=== PATIENT | male | born 1985 | race Caucasian/White ===

== ENCOUNTER → 2018-03-27 | Outpatient (CLI) | payer BC, OTHER ==
--- NOTE | 2018-03-27 10:38 | Diagnostic Imaging Report ---
INDICATION: Crohn's disease with long-term steroid use. COMPARISON: None. FINDINGS: AP Spine L1-L4: [BMD (g/cm2): .946] [T-Score: -2.4] [Z-Score: -3.0] [BMD Previous: n/a] [BMD % Change: n/a] LT Hip Neck: [BMD (g/cm2): .954] [T-Score: -0.9] [Z-Score: -1.1] LT Hip Total: [BMD (g/cm2):.935] [T-Score:-1.2] [Z-Score: -1.4] [BMD Previous: n/a] [BMD % Change: n/a] RT Hip Neck: [BMD (g/cm2):.955] [T-Score:-0.9] [Z-Score:-1.1] RT Hip Total: [BMD (g/cm2):.885] [T-score:-1.5] [Z-Score:-1.7] [BMD Previous:n/a] [BMD % Change:n/a] *Indicates significant change from prior examination based on 95% confidence level. World Health Organization criteria for BMD interpretation classify patients as Normal (T-score at or above -1.0), Osteopenic (T-score between -1.0 and -2.5) or Osteoporotic (T-score at or below -2.5). LIMITATIONS AND MODIFICATION: None. FRACTURE RISK (FRAX SCORE): The ten year probability of (%): Major Osteoporotic Fracture: [1.8] Hip Fracture: [.1] IMPRESSION: 1. Osteopenia (Low bone mass). 2. Baseline examination. 3. See below National Osteoporosis Foundation guidelines on when to potentially initiate pharmacologic therapy. Based on the National Osteoporosis Foundation Guidelines, pharmacologic treatment should be initiated in any of the following, unless clinical conditions suggest otherwise: * Any patient with prior fragility fracture of the hip or vertebrae. A spine fracture indicates 5X risk for subsequent spine fracture and 2X risk for subsequent hip fracture. * Osteoporosis (T-score <-2.5). * Postmenopausal women and men age 50 and older with low bone mass/osteopenia (T-score between -1.0 and -2.5) by DXA and 10-year major osteoporotic fracture greater than 20% or a 10-year probability of hip fracture greater than 3%. These fracture risks are supplied above in the FRAX score, if applicable. * Clinician judgement and/or patient preferences may indicate treatment for people with 10-year fracture probabilities above or below these levels. Dictated by: Dictated on workstation # [id number]
== END ==
LOC: RAD 08:51
PROVIDERS: ATTEND Internal Medicine
DX: K50.90 Crohn's disease, unspecified, without complications (principal); M85.88 Other specified disorders of bone density and structure, other site; Z79.52 Long term (current) use of systemic steroids; Z87.39 Personal history of other diseases of the musculoskeletal system and connective tissue
CPT/HCPCS: 77080

== ENCOUNTER 2020-09-06 07:07 | Emergency (ER) | payer OTHER ==
[~2020-09-06] VITALS: Ht 182 cm; Wt 98.0 kg
[2020-09-06] MEDS ORDERED: SLF500T (07:19)
--- NOTE | 2020-09-06 07:25 | ED Abdominal Pain ---
General Chief Complaint: Abdominal/GI Problems Stated Complaint: ABD PAIN, N/V Nursing Triage Note: ARRIVED VIA AMB TO ROOM 07. TEARFUL. ABDPAIN/NAUSEA SINCE SATURDAY. Sepsis Screen: No Definite Risk Source of Information: Patient, Family Exam Limitations: No Limitations History of Present Illness Date Seen by Provider: Sep 06, 2020 Time Seen by Provider: 07:12 Initial Comments Patient is a 35-year-old male with a history of Crohn's disease who presents to the emergency department with his this morning with a chief complaint of epigastric and right upper quadrant abdominal pain. Patient states that pain started on Saturday, 2 days ago. He states it comes and "waves". Patient describes the pain as sharp and lasting 30 seconds to a minute. He states he has not had anything to eat or drink really in 2 days. He states yesterday he tried to drink Gatorade but he vomited it back up at around 4:00 this morning he states that he has a lot of "acid" in his stomach. Last bowel movement was a small one yesterday. Patient denies any black or bloody stools. No recent fevers chills, cough congestion. No urinary complaints but he states that he is urinating a little bit lesser amounts over the last 24 hours. No prior abdominal surgeries. No other past medical history other than the Crohn's dise ase. Patient states he has been on sulfasalazine for about the last 2 years. His primary care physician is Dr. Nails. Last well check was last . All other review of systems reviewed and negative except as stated above. Timing/Duration: 1-2 Days Severity/Quality: Sharp, Stabbing Location: RUQ, Epigastric Radiation: No Radiation Activities at Onset: None Associated Symptoms: Nausea/Vomiting Allergies and Home Medications Allergies Coded Allergies: No Known Drug Allergies (Unverified , 09/06/20) Patient Home Medication List Home Medication List Reviewed: Yes Review of Systems Review of Systems Constitutional: see HPI Respiratory: No Symptoms Reported Cardiovascular: No Symptoms Reported Gastrointestinal: Abdominal Pain, Nausea, Poor Appetite, Vomiting Genitourinary: No Symptoms Reported Musculoskeletal: no symptoms reported Skin: no symptoms reported All Other Systems Reviewed Negative Unless Noted: Yes Past Yrctqnn-Tazgeq-Gqcrlx Hx Patient Social History Alcohol Use: Denies Use Smoking Status: Current Everyday Smoker Recent Infectious Disease Expo: No Recent Hopitalizations: No Past Medical History Surgeries: No Respiratory: No Cardiac: No Neurological: No Genitourinary: No Gastrointestinal: Yes Crohns Disease Musculoskeletal: No Endocrine: No HEENT: No Cancer: No Psychosocial: No Integumentary: No Physical Exam Vital Signs Vital Signs - First Documented 09/06/20 07:10 Temp 36.7 Pulse 121 Resp 16 B/P (MAP) 182/132 (149) Pulse Ox 96 O2 Delivery Room Air Capillary Refill : Less Than 3 Seconds Height/Weight/BMI Height: '" Weight: lbs. oz. kg; 29.00 BMI Method: General Appearance: WD/WN, mild distress Respiratory: lungs clear, normal breath sounds, no respiratory distress, no accessory muscle use Cardiovascular: regular rate, rhythm Gastrointestinal: soft, abnormal bowel sounds (High-pitched, tinkling bowel sounds with rushes), tenderness (Mild epigastric and right upper quadrant tenderness) Extremities: non-tender, normal inspection, no pedal edema, no calf tenderness Neurologic/Psychiatric: alert, normal mood/affect, oriented x 3 Skin: normal color, warm/dry Progress/Results/Core Measures Results/Orders Lab Results Laboratory Tests Test 09/06/20 07:24 Range/Units White Blood Count 10.1 4.3-11.0 10^3/uL Red Blood Count 5.70 H 4.30-5.52 10^6/uL Hemoglobin 17.2 13.3-17.7 g/dL Hematocrit 51 40-54 % Mean Corpuscular Volume 89 80-99 fL Mean Corpuscular Hemoglobin 30 25-34 pg Mean Corpuscular Hemoglobin Concent 34 32-36 g/dL Red Cell Distribution Width 12.1 10.0-14.5 % Platelet Count 283 130-400 10^3/uL Mean Platelet Volume 9.7 9.0-12.2 fL Immature Granulocyte % (Auto) 0 % Neutrophils (%) (Auto) 74 42-75 % Lymphocytes (%) (Auto) 18 12-44 % Monocytes (%) (Auto) 7 0-12 % Eosinophils (%) (Auto) 0 0-10 % Basophils (%) (Auto) 0 0-10 % Neutrophils # (Auto) 7.5 1.8-7.8 10^3/uL Lymphocytes # (Auto) 1.8 1.0-4.0 10^3/uL Monocytes # (Auto) 0.7 0.0-1.0 10^3/uL Eosinophils # (Auto) 0.0 0.0-0.3 10^3/uL Basophils # (Auto) 0.0 0.0-0.1 10^3/uL Immature Granulocyte # (Auto) 0.0 0.0-0.1 10^3/uL Sodium Level 141 135-145 MMOL/L Potassium Level 3.8 3.6-5.0 MMOL/L Chloride Level 103 98-107 MMOL/L Carbon Dioxide Level 22 21-32 MMOL/L Anion Gap 16 H 5-14 MMOL/L Blood Urea Nitrogen 10 7-18 MG/DL Creatinine 1.10 0.60-1.30 MG/DL Estimat Glomerular Filtration Rate > 60 BUN/Creatinine Ratio 9 Glucose Level 115 H 70-105 MG/DL Calcium Level 9.8 8.5-10.1 MG/DL Corrected Calcium 8.5-10.1 MG/DL Total Bilirubin 0.7 0.1-1.0 MG/DL Aspartate Amino Transf (AST/SGOT) 13 5-34 U/L Alanine Aminotransferase (ALT/SGPT) 15 0-55 U/L Alkaline Phosphatase 73 40-136 U/L Total Protein 7.6 6.4-8.2 GM/DL Albumin 4.6 H 3.2-4.5 GM/DL Lipase 26 8-78 U/L My Orders Orders - NICK MICHAEL MD Ed Iv/Invasive Line Start (09/06/20 07:21) Cbc With Automated Diff (09/06/20 07:21) Comprehensive Metabolic Panel (09/06/20 07:21) Lipase (09/06/20 07:21) Ct Abdomen/Pelvis Wo (09/06/20 07:21) Ns Iv 1000 Ml (Sodium Chloride 0.9%) (09/06/20 07:30) Ondansetron Injection (Zofran Injectio (09/06/20 07:30) Fentanyl Inj (Sublimaze Injection) (09/06/20 07:30) Promethazine Injection (Phenergan Injec (09/06/20 10:00) Morphine Injection (Morphine Injection (09/06/20 09:51) Medications Given in ED Current Medications Medications Dose Ordered Sig/Tameka Route Start Time Stop Time Status Last Admin Dose Admin Fentanyl Citrate 25 mcg ONCE ONCE IVP 09/06/20 07:30 09/06/20 07:33 DC 09/06/20 07:29 25 MCG Ondansetron HCl 4 mg ONCE ONCE IVP 09/06/20 07:30 09/06/20 07:33 DC 09/06/20 07:29 4 MG Promethazine HCl 25 mg ONCE ONCE IVP 09/06/20 10:00 09/06/20 10:01 DC 09/06/20 10:11 25 MG Vital Signs/I&O 09/06/20 09/06/20 07:10 07:33 Temp 36.7 Pulse 121 77 Resp 16 B/P (MAP) 182/132 (149) 105/67 (80) Pulse Ox 96 O2 Delivery Room Air Blood Pressure Mean: 149 Progress Progress Note : Time: 09:19 Progress Note Patient reevaluated, pain is improved. Mildly nauseous. We will continue to monitor for another 30 minutes and see if he continues to have improvement CT scan shows slight bowel wall thickening in the mid transverse to distal colon. Stool is noted in this area. Patient's labs have been reviewed and are reassuring/normal. Diagnostic Imaging Diagonstic Imaging: CT Plain Films/CT/US/NM/MRI: abdomen Comments [facility], [place] NAME: [facility] REC#: [id number] PT STATUS: REG ER : 1985 PHYSICIAN: NICK MICHAEL MD ADMIT DATE: 09/06/20/ER Draft Date of Exam:09/06/20 CT ABDOMEN/PELVIS WO PROCEDURE: CT abdomen and pelvis without contrast. TECHNIQUE: Multiple contiguous axial images were obtained through the abdomen and pelvis without the use of intravenous contrast. Auto Exposure Controls were utilized during the CT exam to meet ALARA standards for radiation dose reduction. INDICATION: Epigastric pain, right upper quadrant pain There are no prior studies available for comparison. The liver is borderline enlarged but seems homogeneous. There is no evidence for cholelithiasis or acute cholecystitis and the common bile duct is not dilated. The spleen, pancreas, adrenals, aorta and inferior vena cava and kidneys show no sign of an acute abnormality. The stomach is partially filled with fluid and gas and consequently difficult to evaluate. There does appear to be a small hiatal hernia but there is no acute abnormality of the stomach noted otherwise. There is a considerable amount of fecal material throughout the distal half of the transverse colon, descending and junction of the sigmoid and descending colon. There is no sign of obstructive mass to suggest neoplastic disease. However the wall of the colon does seem slightly thickened and there could be an element of colitis present. There is also mild distortion of the pericolonic fat in the mid descending colon and this finding is also suspicious for colitis. The appendix was visualized and is not abnormally thickened. The urinary bladder and prostate gland are grossly unremarkable. The bone windows shows no evidence for a fracture or for a destructive lesion. However there are bilateral pars defects at L5 and there is a grade 1 spondylolisthesis of L5 with respect of S1. There is also narrowing of the disc space at L5-S1. The lung bases are clear. Impression: 1. There is considerable distention of the distal transverse, descending and descending colon/sigmoid junction by fecal material. The bowel wall also seems slightly thickened in this region and there is mild distortion of the pericolonic fat about the midportion of the descending colon. These findings do suggest there is an element of mild colitis present. 2. There is no sign of obstructive mass involving the colon. If further evaluation is desired however, then endoscopy would be recommended. 3. There is no acute abnormality of the abdomen or pelvis noted otherwise. Dictated on workstation # [id number] Dict: 09/06/20 [id number] Trans: 09/06/20 0851 [facility] [id number] Interpreted by: CLARI ANDRADE MD Electronically signed by: Departure Impression Primary Impression: Abdominal pain Qualified Codes: R10.9 - Unspecified abdominal pain Additional Impression: Colitis Disposition: 01 HOME, SELF-CARE Condition: Stable Departure-Patient Inst. Decision time for Depature: 09:45 Referrals: DONTA NAILS MD (PCP/Family) Primary Care Physician Patient Instructions: Colitis Add. Discharge Instructions: Drink plenty of fluids to stay well-hydrated. Use the Zofran and pain medications as needed for pain and nausea. Take the antibiotics as directed for the next week. Please call and follow-up with Dr. Nails's office in a week. Return to the emergency room for any worsening symptoms of abdominal pain with fever, vomiting or any other emergent concerning symptoms. Scripts Ondansetron (Ondansetron Odt) 8 Mg Tab.rapdis 8 MG PO Q8H PRN for nausea, #20 TAB Prov: NICK MICHAEL MD 09/06/20 Oxycodone HCl/Acetaminophen (Oxycodone-Acetaminophen 5-325) 1 Each Tablet 1 EACH PO Q6H PRN for PAIN-MODERATE MDD 6 for 3 Days, #15 TAB 0 Refills Prov: NICK MICHAEL MD 09/06/20 Ciprofloxacin HCl (Ciprofloxacin HCl) 500 Mg Tablet 500 MG PO BID, #14 TAB Prov: NICK MICHAEL MD 09/06/20 Metronidazole (Flagyl) 500 Mg Tablet 500 MG PO TID, #21 TAB Prov: NICK MICHAEL MD 09/06/20 NICK MICHAEL MD Sep 06, 2020 07:25
[2020-09-06 07:29] LABS: BASOPHILS % (AUTO) 0 % (0-10); EOSINOPHILS % (AUTO) 0 % (0-10); HEMATOCRIT 51 % (40-54); HEMOGLOBIN 17.2 g/dL (13.3-17.7); LYMPHOCYTES # (AUTO) 1.8 10^3/uL (1.0-4.0); LYMPHOCYTES % (AUTO) 18 % (12-44); MEAN CORPUSCULAR HEMOGLOBIN 30 pg (25-34); MEAN CORPUSCULAR HGB CONC 34 g/dL (32-36); MEAN CORPUSCULAR VOLUME 89 fL (80-99); MEAN PLATELET VOLUME 9.7 fL (9.0-12.2); MONOCYTES # (AUTO) 0.7 10^3/uL (0.0-1.0); MONOCYTES % (AUTO) 7 % (0-12); NEUTROPHILS # (AUTO) 7.5 10^3/uL (1.8-7.8); NEUTROPHILS % (AUTO) 74 % (42-75); PLATELET COUNT 283 10^3/uL (130-400); WHITE BLOOD COUNT 10.1 10^3/uL (4.3-11.0)
[2020-09-06] MEDS ORDERED: ONDANSETRON 4 MG/2 ML (SDV) Z0FRAN IVP ONE (07:30)
[2020-09-06] MEDS ORDERED: NS IV 1000 ML 1,000 ML IV SCH (07:30)
[2020-09-06] MEDS ORDERED: fentaNYL INJ 100 MCG/2 ML AMP IVP ONE (07:30)
[2020-09-06 07:43] LABS: ALBUMIN 4.6 GM/DL (3.2-4.5); CHLORIDE 103 MMOL/L (98-107); POTASSIUM 3.8 MMOL/L (3.6-5.0); SODIUM 141 MMOL/L (135-145)
[2020-09-06 07:45] LABS: CALCIUM 9.8 MG/DL (8.5-10.1)
[2020-09-06 07:46] LABS: GLUCOSE 115 MG/DL (70-105); TOTAL PROTEIN 7.6 GM/DL (6.4-8.2)
[2020-09-06 07:47] LABS: CARBON DIOXIDE 22 MMOL/L (21-32)
[2020-09-06 07:48] LABS: BILIRUBIN,TOTAL 0.7 MG/DL (0.1-1.0)
[2020-09-06 07:49] LABS: ALKALINE PHOSPHATASE 73 U/L (40-136); GFR ESTIMATED > 60
[2020-09-06 07:50] LABS: BUN/CREATININE RATIO 9
[2020-09-06 07:52] LABS: ALANINE AMINOTRANSFERASE 15 U/L (0-55)
[2020-09-06 07:53] LABS: LIPASE 26 U/L (8-78)
--- NOTE | 2020-09-06 08:51 | Diagnostic Imaging Report ---
PROCEDURE: CT abdomen and pelvis without contrast. TECHNIQUE: Multiple contiguous axial images were obtained through the abdomen and pelvis without the use of intravenous contrast. Auto Exposure Controls were utilized during the CT exam to meet ALARA standards for radiation dose reduction. INDICATION: Epigastric pain, right upper quadrant pain There are no prior studies available for comparison. The liver is borderline enlarged but seems homogeneous. There is no evidence for cholelithiasis or acute cholecystitis and the common bile duct is not dilated. The spleen, pancreas, adrenals, aorta and inferior vena cava and kidneys show no sign of an acute abnormality. The stomach is partially filled with fluid and gas and consequently difficult to evaluate. There does appear to be a small hiatal hernia but there is no acute abnormality of the stomach noted otherwise. There is a considerable amount of fecal material throughout the distal half of the transverse colon, descending and junction of the sigmoid and descending colon. There is no sign of obstructive mass to suggest neoplastic disease. However the wall of the colon does seem slightly thickened and there could be an element of colitis present. There is also mild distortion of the pericolonic fat in the mid descending colon and this finding is also suspicious for colitis. The appendix was visualized and is not abnormally thickened. The urinary bladder and prostate gland are grossly unremarkable. The bone windows shows no evidence for a fracture or for a destructive lesion. However there are bilateral pars defects at L5 and there is a grade 1 spondylolisthesis of L5 with respect of S1. There is also narrowing of the disc space at L5-S1. The lung bases are clear. Impression: 1. There is considerable distention of the distal transverse, descending and descending colon/sigmoid junction by fecal material. The bowel wall also seems slightly thickened in this region and there is mild distortion of the pericolonic fat about the midportion of the descending colon. These findings do suggest there is an element of mild colitis present. 2. There is no sign of obstructive mass involving the colon. If further evaluation is desired however, then endoscopy would be recommended. 3. There is no acute abnormality of the abdomen or pelvis noted otherwise. Dictated by: Dictated on workstation # [id number]
[2020-09-06] MEDS ORDERED: morphine INJ 10 MG/ML 1ML (SYR OR VIAL) IVP STA (09:51)
[2020-09-06] MEDS ORDERED: PROMETHAZINE INJ 25 MG/ML (PHENERGAN) AMP IVP ONE (10:00)
[2020-09-06] MEDS ORDERED: OXYC1TAB11 PO (10:16)
[2020-09-06] MEDS ORDERED: METR500T PO (10:16)
[2020-09-06] MEDS ORDERED: ONDA8TAB13 PO (10:16)
[2020-09-06] MEDS ORDERED: CIPR500T5 PO (10:16)
[2020-09-06 10:41] VITALS: BP 99/64
== END 2020-09-06 10:41 | disposition home or self-care (01) ==
LOC: EDUNIT# 07:07 → ER 07:10
DX: K52.9 Noninfective gastroenteritis and colitis, unspecified (principal); F17.200 Nicotine dependence, unspecified, uncomplicated
CPT/HCPCS: 36415; 74176; 80053; 83690; 85025

== ENCOUNTER 2020-12-14 05:31 | Outpatient (RCR) | payer OTHER ==
[~2020-12-14] VITALS: Ht 182.9 cm; Wt 97.6 kg
[~2020-12-14 05:31] MED LIST: CIPR500T5 PO; METR500T PO; ONDA8TAB13 PO; OXYC1TAB11 PO; PRD20T PO; SLF500T
== END 2020-12-14 08:57 | disposition home or self-care (01) ==
LOC: PREOP 05:31
PROVIDERS: ATTEND Internal Medicine
DX: Z01.818 Encounter for other preprocedural examination (principal); K50.90 Crohn's disease, unspecified, without complications; R10.13 Epigastric pain; Z20.822 Contact with and (suspected) exposure to COVID-19
CPT/HCPCS: 87635

== ENCOUNTER 2020-12-16 07:49 | Day surgery (SDC) | payer OTHER ==
--- NOTE | 2020-12-08 06:16 | HISTORY AND PHYSICAL ---
DATE OF SERVICE: COLONOSCOPY HISTORY AND HISTORY The patient is a 35-year-old white male with a history of Crohn's disease, clinically that had been in remission on sulfasalazine alone. In December, he developed severe epigastric pain with abdominal distention after a meal. He had some nausea and vomiting. He went to the emergency room where CAT scan revealed a lot of stools in the left colon. There also appeared to be some thickening in the mid portion of the transverse colon suggesting colitis. His hemoglobin was 17 and white count was normal. He was ultimately discharged from the emergency room on Zofran with symptomatic improvement over the next several days. He was back tolerating solids. He has had 2 other episodes not quite as severe, the last one was a week ago. With his past Crohn's flares, he had had chronic problems with diarrhea and some weight loss. He reports that he has continued stool softeners. Stools have not been hard, but he will go for several days without a bowel movement and then have several. He has definitely not had any problems with diarrhea. He has had no night sweats, chills, fever or arthralgia. In between episodes, reports that he feels well. He has had one other colonoscopy that did not reveal any colonic disease, but had terminal ileal findings compatible with Crohn's disease. This was performed in 2002. He has noted no bright red blood per rectum or melena with weight unchanged from 8 months ago that is down 4.4 pounds from 2 months ago. PHYSICAL EXAMINATION: GENERAL: Reveals a white male, who did not appear to be in acute distress. VITAL SIGNS: Weight 212 pounds, blood pressure 130/90 at the beginning of the interview and 124/82 at the end. HEENT: Unremarkable. Sclerae nonicteric. CHEST: Clear. CARDIOVASCULAR: Reveals a regular rate and rhythm without murmur, S3 or S4. ABDOMEN: Soft, supple and epigastrium and elsewhere in the abdomen is nontender. No mass or organomegaly noted. Bowel sounds positive. EXTREMITIES: Reveal no cyanosis, clubbing or edema. ASSESSMENT: For further evaluation of changes suggesting possible colitis, the patient is being set up for colonoscopy considering epigastric nature of the pain and also with history of Crohn's disease, he will be undergoing diagnostic EGD as well to rule out any upper tract disease or obstruction. Prep instructions were given and questions were answered. Job ID: [id number] DocumentID: [id number] Dictated Date: 11/28/2020 14:09:23 Sourcing Specialist Date: 11/28/2020 23:22:20 Dictated By: DONTA FORD MD
[~2020-12-16] VITALS: Ht 182.9 cm; Wt 97.6 kg
[2020-12-16] MEDS ORDERED: LACTATED RINGERS 1,000 ML IV STA (08:02)
[2020-12-16] MEDS ORDERED: LIDOCAINE JELLY 2% 6 ML SYRINGE MM PRN (08:15)
[2020-12-16] MEDS ORDERED: HURRICAINE EXT TUBE (BENZOCAINE) XX PRN (08:15)
[2020-12-16 08:27] VITALS: BP 137/90
--- NOTE | 2020-12-16 08:47 | Pre-Op Note & Conscious Sedat ---
Pre-Operative Progress Note H&P Reviewed The H&P was reviewed, patient examined and no changes noted. Date H&P Reviewed: Dec 16, 2020 Time H&P Reviewed: 08:47 Conscious Sedation Pre-Proced ASA Score 2 For ASA 3 and 4: Consider anesthesia and medical clearance. Also, for patients with a history of failed moderate sedation consider anesthesia. Airway Lungs Heart ASA score ASA 1: a normal healthy patient ASA 2: a patient with a mild systemic disease (mid diabetes, controlled hypertension, obesity ASA 3: a patient with a severe systemic disease that limits activity (angina, COPD, prior Myocardial infarction) ASA 4: a patient with an incapacitating disease that is a constant threat to life (CHF, renal failure) ASA 5: a moribund patient not expected to survive 24 hrs. (ruptured aneurysm) ASA 6: a declared brain- patient whose organs are being harvested. For emergent operations, add the letter E after the classification Mallampati Classification Grade 1 Sedation Plan Analgesia, Amnesia, Plan communicated to team members, Discussed options with patient/fam, Discussed risks with patient/fam The patient is an appropriate candidate to undergo the planned procedure, sedation, and anesthesia. The patient immediately re-assessed prior to indication. DONTA FORD MD Dec 16, 2020 08:47
[2020-12-16] MEDS ORDERED: MIDAZOLAM 5 MG/5 ML (VERSED) VIAL ONE (09:11)
[2020-12-16] MEDS ORDERED: PROPOFOL INJECTION 50 ML IV ONE ×2 (09:11→09:36)
[2020-12-16 09:50] VITALS: BP 103/57
[2020-12-16 09:55] VITALS: BP 100/53
[2020-12-16 10:00] VITALS: BP 105/79
[2020-12-16 10:20] VITALS: BP 111/73
[2020-12-16 10:28] VITALS: BP 111/73
[2020-12-16] MEDS ORDERED: PANT40TA52 PO (10:46)
--- NOTE | 2020-12-16 13:48 | Anesthesia-General Post-Op ---
MAC Patient Condition Mental Status/LOC: Same as Preop Cardiovascular: Satisfactory Nausea/Vomiting: Absent Respiratory: Satisfactory Pain: Controlled Complications: Absent Post Op Complications Complications None Follow Up Care/Instructions Patient Instructions None needed. Anesthesiology Discharge Order Discharge Order Patient is doing well, no complaints, stable vital signs, no apparent adverse anesthesia problems. No complications reported per nursing. PINA GALINDO CRNA Dec 16, 2020 13:48
--- NOTE | 2020-12-16 14:59 | OPERATIVE REPORT ---
DATE OF SERVICE: PANENDOSCOPY SUMMARY INDICATION FOR THE PROCEDURE: Panendoscopy was performed for evaluation of nausea, abdominal pain, history of Crohn's disease. DESCRIPTION OF PROCEDURE: The patient was placed in the left lateral decubitus position. The endoscope was inserted in the oral cavity and under direct visualization, esophagus was intubated. The endoscope was passed down the esophagus through stomach and second portion of the duodenum. Careful inspection was made as the endoscope withdrawn. The patient tolerated the procedure well. FINDINGS: The posterior pharynx, epiglottis, arytenoid aperture and true and false vocal folds were unremarkable on visual inspection. Proximal and mid esophagus were unremarkable. There was a small hiatal hernia present with evidence for lower esophageal sphincter laxity and LA grade A erosive esophagitis. Photograph was obtained. There was no obvious evidence for Sanchez's change. No nodules were noted. Biopsies were obtained and submitted for histopathology. The cardia and fundus of the stomach were unremarkable. There were linear antral erythema present. Biopsy was obtained and submitted for histopathology and Helicobacter. The pylorus, pyloric channel, duodenal bulb and second portion of duodenum were unremarkable. ASSESSMENT: Small hiatal hernia was present with evidence for sphincter laxity and LA grade A erosive esophagitis without gross evidence to suggest Sanchez's change. Biopsies were obtained. Mild antral gastritis was noted as well. Findings compatible with mild antral gastritis was noted as well and biopsies were obtained for evaluation of histopathology and Helicobacter. The patient will be initiated on pantoprazole 40 mg q.a.m. daily and non-medication reflux measures were discussed. Colonoscopy was then performed. Prior to colonoscopy, digital rectal evaluation was performed. Anal sphincter tone was normal and the perianal reflexes intact. Prostate mildly enlarged, anodular and nontender to digital inspection. No abnormalities were noted on digital inspection of anal canal or distal rectal vault. The colonoscope was then inserted into the rectum and under direct visualization advanced to the cecum. The cecum was identified by identification of ileocecal valve and cecal strap. Distal 15 to 20 cm of terminal ileum were inspected as well. Quality of the prep was good. FINDINGS: One small grade I internal hemorrhoid complex was noted without evidence for external hemorrhoids. One questionable diminutive polyp was removed and submitted for histopathology noted in the distal rectum with a small amount of blood loss estimated a mL or two. The remainder of the rectum was unremarkable. The sigmoid colon, descending colon, splenic flexure, transverse colon, ascending colon, and cecum as well as distal 15 to 20 cm of terminal ileum were unremarkable to visual inspection with no evidence for active Crohn's disease. ASSESSMENT: One diminutive polyp was removed from the distal rectum and submitted for histopathology. This is otherwise unremarkable colonoscopy including distal 15 to 20 cm of terminal ileum with no evidence for active Crohn's disease or other abnormalities being identified. As the patient's abdominal symptoms followed fatty food ingestion, discussed the importance of lower fat diet. If symptoms persist, we will need to look into biliary tract/gallbladder pathology. Job ID: [id number] DocumentID: [id number] Dictated Date: 12/16/2020 11:18:04 Biomaterials Engineer Date: 12/16/2020 14:59:00 Dictated By: DONTA FORD MD
== END 2020-12-16 10:50 | disposition home or self-care (01) ==
LOC: ENDO 07:49
PROVIDERS: ATTEND Internal Medicine
DX: R10.9 Unspecified abdominal pain (principal); R11.0 Nausea; K44.9 Diaphragmatic hernia without obstruction or gangrene; K64.8 Other hemorrhoids; K29.50 Unspecified chronic gastritis without bleeding; K20.90 Esophagitis, unspecified without bleeding; K52.9 Noninfective gastroenteritis and colitis, unspecified; Z79.899 Other long term (current) drug therapy; Z87.19 Personal history of other diseases of the digestive system

== ENCOUNTER 2021-09-23 21:26 | Emergency (ER) | payer OTHER ==
[~2021-09-23 21:26] MED LIST changes: +PANT40TA52 PO
== END 2021-09-23 22:15 | disposition left against medical advice (07) ==
LOC: EDUNIT# 21:26 → ER 21:29
DX: R10.9 Unspecified abdominal pain (principal); R11.2 Nausea with vomiting, unspecified